=== PATIENT | male | born 1980 | race Caucasian/White ===

== ENCOUNTER 2016-12-02 14:04 | Observation (INO) | payer BC ==
[2016-12-02] MEDS ORDERED: Ondansetron 4 MG/2 ML SDV IVPUSH ONE (14:27)
[2016-12-02] MEDS ORDERED: Ketorolac 30 MG/ML SDV IVPUSH ONE (14:27)
[2016-12-02] MEDS ORDERED: Sodium Chloride 0.9% 1,000 ML IV ONE (14:27)
--- NOTE | 2016-12-02 14:29 | EDM.PDOC ---
[id number]: ABDOMINAL PAIN Time Seen by Provider: 12/02/16 14:25 - History of Present Illness INITIAL COMMENTS - FREE TEXT/NARRATIVE: HISTORY AND PHYSICAL: History of present illness: Patient 36-year-old white male presents with a concern of left-sided abdominal/ flank pain for approximately 4 hours states she had dark-colored urine his history of urolithiasis and has had many episodes prior. He has nausea without vomiting he denies trauma or other concern Review of systems: As per history of present illness and below otherwise all systems reviewed and negative. Past medical history: As per history of present illness and as reviewed below otherwise noncontributory. Surgical history: As per history of present illness and as reviewed below otherwise noncontributory. Social history: No reported history of drug or alcohol abuse. Family history: As per history of present illness and as reviewed below otherwise noncontributory. Physical exam: HEENT: Atraumatic, normocephalic, pupils reactive, negative for conjunctival pallor or scleral icterus, mucous membranes moist, throat clear, neck supple, nontender, trachea midline. Lungs: Clear to auscultation, breath sounds equal bilaterally, chest nontender. Heart: S1S2, regular, negative for clicks, rubs, or JVD. Abdomen: Soft, nondistended, nontender. Negative for masses or hepatosplenomegaly. Left-sided costovertebral tenderness. Pelvis: Stable nontender. Genitourinary: Deferred. Rectal: Deferred. Extremities: Atraumatic, negative for cords or calf pain. Neurovascular unremarkable. Neuro: Awake, alert, oriented. Cranial nerves II through XII unremarkable. Cerebellum unremarkable. Motor and sensory unremarkable throughout. Exam nonfocal. Diagnostics: CBC CMP UA urine culture CT abdomen and pelvis Therapeutics: Normal saline 1 L bolus Zofran 4 mg IV Toradol 30 mg IV Impression: #1 left flank pain #2 history urolithiasis Definitive disposition and diagnosis as appropriate pending reevaluation and review of above. Left Flank Pain Score (Numeric/FACES): 10 - Related Data Allergies Allergy/AdvReac Type Severity Reaction Status Date / Time No Known Allergies Allergy Verified 12/02/16 14:12 Home Meds: Home Meds . [No Known Home Meds] 12/02/16 [History] Past Medical History - Past Health History Medical/Surgical History: Denies Medical/Surgical History Genitourinary History: Reports: Renal Calculus Other Genitourinary History: Kidney stones 5-6 times per year - Past Surgical History Male Surgical History: Reports: Kidney Stone Extraction, Lithotripsy ([facility]) Social & Family History - Family History Family Medical History: Noncontributory - Tobacco Use Smoking Status *Q: Current Every Day Smoker Years of Tobacco use: 20 Packs/Tins Daily: 1 Second Hand Smoke Exposure: Yes - Caffeine Use Caffeine Use: Reports: Soda - Recreational Drug Use Recreational Drug Use: No ED ROS GENERAL - Review of Systems Review Of Systems: ROS reveals no pertinent complaints other than HPI. ED EXAM, GENERAL - Physical Exam Exam: See Below (See dictation) Course - Vital Signs Last Recorded V/S: Last Vital Signs Temp 36.3 C 12/02/16 14:13 Pulse 70 12/02/16 14:13 Resp 20 12/02/16 14:13 BP 134/91 H 12/02/16 14:13 Pulse Ox 97 12/02/16 14:13 - Orders/Labs/Meds Orders: Active Orders 24 hr Category Date Time Status Patient Status [ADT] Stat ADT 12/02/16 15:34 Active CULTURE URINE [RM] Stat Lab 12/02/16 15:02 Received Labs: Laboratory Tests 12/02/16 12/02/16 12/02/16 Range/Units 14:25 14:25 15:02 WBC 16.75 H (4.0-11.0) K/uL RBC 4.56 (4.50-5.90) M/uL Hgb 13.8 (13.0-17.0) g/dL Hct 41.4 (38.0-50.0) % MCV 90.8 (80.0-98.0) fL MCH 30.3 (27.0-32.0) pg MCHC 33.3 (31.0-37.0) g/dL RDW Std Deviation 48.8 (28.0-62.0) fl RDW Coeff of Brittanie 15 (11.0-15.0) % Plt Count 376 (150-400) K/uL MPV 11.20 (7.40-12.00) fL Neut % (Auto) 75.6 (48.0-80.0) % Lymph % (Auto) 16.5 (16.0-40.0) % Haines % (Auto) 7.2 (0.0-15.0) % Eos % (Auto) 0.4 (0.0-7.0) % Baso % (Auto) 0.3 (0.0-1.5) % Neut # (Auto) 12.7 H (1.4-5.7) K/uL Lymph # (Auto) 2.8 H (0.6-2.4) K/uL Haines # (Auto) 1.2 H (0.0-0.8) K/uL Eos # (Auto) 0.1 (0.0-0.7) K/uL Baso # (Auto) 0.1 (0.0-0.1) K/uL Nucleated RBC % 0.0 /100WBC Nucleated RBCs # 0 K/uL Sodium 138 (136-146) mmol/L Potassium 4.4 (3.5-5.1) mmol/L Chloride 108 (98-110) mmol/L Carbon Dioxide 23 (21-31) mmol/L BUN 16 (6.0-23.0) mg/dL Creatinine 1.0 (0.6-1.5) mg/dL Est Cr Clr Drug Dosing 122.06 mL/min Estimated GFR (MDRD) > 60.0 ml/min Glucose 99 (60-110) mg/dL Calcium 9.0 (8.8-10.8) mg/dL Total Bilirubin 0.4 (0.1-1.5) mg/dL AST 17 (5-40) IU/L ALT 23 (8-54) IU/L Alkaline Phosphatase 81 (40-150) Total Protein 7.4 (6.0-8.0) g/dL Albumin 4.0 (3.5-5.0) g/dL Globulin 3.4 (2.0-3.5) g/dL Albumin/Globulin Ratio 1.2 L (1.3-2.8) Urine Color BROWN Urine Appearance CLOUDY Urine pH 5.5 (5.0-8.0) Ur Specific Sylva >= 1.030 (1.001-1.035) Urine Protein 100 (NEGATIVE) mg/dL Urine Glucose (UA) NEGATIVE (NEGATIVE) mg/dL Urine Ketones TRACE H (NEGATIVE) mg/dL Urine Occult Blood LARGE H (NEGATIVE) Urine Nitrite NEGATIVE (NEGATIVE) Urine Bilirubin SMALL H (NEGATIVE) Urine Ictotest NEGATIVE Urine Urobilinogen 1.0 (<2.0) EU/dL Ur Leukocyte Esterase NEGATIVE (NEGATIVE) Urine RBC 100-120 (0-2/HPF) Urine WBC 1-3 (0-5/HPF) Ur Epithelial Cells FEW (NONE-FEW) Urine Bacteria FEW (NEGATIVE) Urine Mucus MODERATE (NONE-MOD) Meds: Medications Discontinued Medications Generic Name Dose Route Start Last Admin Trade Name Bony PRN Reason Stop Dose Admin Hydromorphone HCl 1 mg 12/02/16 15:32 Dilaudid IVPUSH 12/02/16 15:33 ONETIME ONE Sodium Chloride 1,000 mls @ 999 mls/hr 12/02/16 14:27 12/02/16 14:33 Normal Saline IV 12/02/16 15:27 999 mls/hr STAT ONE Administration Ketorolac Tromethamine 30 mg 12/02/16 14:27 12/02/16 14:33 Toradol IVPUSH 12/02/16 14:28 30 mg ONETIME ONE Administration Ondansetron HCl 4 mg 12/02/16 14:27 12/02/16 14:33 Zofran IVPUSH 12/02/16 14:28 4 mg ONETIME ONE Administration Tamsulosin HCl 0.4 mg 12/02/16 15:25 Flomax PO 12/02/16 15:26 ONETIME ONE Departure - Departure Time of Disposition: 15:37 Disposition: Refer to Observation Condition: Good Clinical Impression: Kidney stone - Discharge Information Forms: ED Department Discharge - My Orders Last 24 Hours: My Active Orders 12/02/16 15:02 CULTURE URINE [RM] Stat 12/02/16 15:34 Patient Status [ADT] Stat - Assessment/Plan Last 24 Hours: My Active Orders 12/02/16 15:02 CULTURE URINE [RM] Stat 12/02/16 15:34 Patient Status [ADT] Stat
[2016-12-02 15:01] LABS: CHLORIDE,CL 108 mmol/L (98-110); SODIUM,NA 138 mmol/L (136-146)
--- NOTE | 2016-12-02 15:12 | CT ---
CT of the abdomen and pelvis without contrast. HISTORY: Pain TECHNIQUE: Axial CT images were obtained of the abdomen and pelvis without contrast. Coronal and sag ittal reconstructions obtained. FINDINGS: The lung bases are clear, no pleural effusion. The liver, spleen, adrenal glands, and pancreas appear unremarkable for noncontrast examination. The gallbladder appears normal. There is no bulky retroperitoneal lymphadenopathy. No abdominal ascite s. There is a 4 mm stone within the proximal left ureter with mild proximal hydronephrosis. The large and small bowel are normal in caliber without evidence of obstruction. The appendix appear s normal. There is no bulky pelvic lymphadenopathy. No free fluid. No free air. The urinary bladder appears normal. The visualized osseous structures appear normal. IMPRESSION: 1. There is a 4 mm obstructing stone within the proximal left ureter with mild proximal hydronephros is.
[2016-12-02] MEDS ORDERED: Tamsulosin 0.4 MG Cap.ER PO ONE (15:25)
[2016-12-02] MEDS ORDERED: HYDROmorphone 2 MG/ML Syringe IVPUSH ONE ×2 (15:32→19:39)
[2016-12-02] MEDS ORDERED: HYDROmorphone 2 MG Tab PO PRN (20:15)
[2016-12-02] MEDS: Lactated Ringers 1,000 ML IV SCH (20:57)
[2016-12-02] MEDS: Ciprofloxacin in D5W 400 MG in Premix Bag 1 BAG IV SCH ×2 (20:57)
[2016-12-02] MEDS: Tamsulosin 0.4 MG Cap.ER PO SCH (21:44)
[2016-12-03] MEDS: HYDROmorphone 2 MG/ML Syringe IVPUSH PRN ×4 (00:10→17:49)
[2016-12-03] MEDS: Lactated Ringers 1,000 ML IV SCH ×2 (07:59→19:29)
[2016-12-03] MEDS: Ciprofloxacin in D5W 400 MG in Premix Bag 1 BAG IV SCH ×4 (08:32→21:00)
--- NOTE | 2016-12-03 15:42 | CR ---
EXAMINATION: Abdomen HISTORY: Kidney stones COMPARISON: CT dated 12/02/2016 TECHNIQUE: Single AP view FINDINGS: There is a nonobstructive bowel gas pattern. No abnormal calcifications project over the k idneys. The stone within the proximal left ureter is not well characterized radiographically. The vi sualized osseous structures appear normal. The visualized osseous structures appear normal. IMPRESSION: 1. No definite nephrolithiasis identified.
[2016-12-03 19:26] VITALS: BP 111/66
[2016-12-03] MEDS: Tamsulosin 0.4 MG Cap.ER PO SCH (21:04)
--- NOTE | 2016-12-04 00:52 | CONS ---
DATE OF CONSULTATION: DATE OF : 1980 PRIMARY CARE PHYSICIAN: None PCP HISTORY OF PRESENT ILLNESS: This 36-year-old presented to the emergency room with sudden onset of left flank pain, having had urinary stones in the past, he suspects that is what he was having. His UA showed microscopic hematuria. His CT scan showed a 4 mm left upper ureteral stone. He had about 2+ hydronephrosis without perinephric stranding. White blood count was 16,000. He was admitted to the hospital for observation and pain control. PHYSICAL EXAMINATION: GENERAL: Appearance is normal. VITAL SIGNS: Normal. HEART: Normal sinus rhythm. LUNGS: Clear. ABDOMEN: Mild tenderness over the left side of the abdomen. EXTERNAL GENITALIA: Normal. DIAGNOSIS: Left upper ureteral stone. PLAN: Observation and management as indicated. GAIL PINTO /[id number]
--- NOTE | 2016-12-04 06:14 | DISCH ---
DATE OF DISCHARGE: 12/03/2016 PRIMARY CARE PHYSICIAN: Evelia PCP HOSPITAL COURSE: Mr. Kuhn is 36 years old. He was admitted to the hospital yesterday with sudden onset of left flank pain and a 4-mm left upper ureteral stone. He was kept overnight for pain control and was given 2 doses of IV Cipro 400 mg each because his white count when he came in was 16,000. Even his urinalysis showed no indication of UTI. Over the next 24 hours, his pain was controlled with Dilaudid. By the end of the 24 hours, he had already passed his stone. He is discharged home. He has no other stones in either kidney and no reason to do anything else at this point. The stone is submitted for analysis by my orders. GAIL / MILLIE /[id number]
== END 2016-12-03 21:20 | disposition home or self-care (01) ==
LOC: MW.ED 14:04 → MW.MS 15:34
PROVIDERS: ADMIT Urology; ATTEND Urology
DX: N13.2 Hydronephrosis with renal and ureteral calculous obstruction (principal)
CPT/HCPCS: 36415; 74000; 74176; 80053; 81001; 85025; 87086; 88300; 96361; 96365; 96366; 96375; 96376; 99285; A9270; G0378; J0744; J1170; J1885; J2405; J7040; J7120; 96374; 99284